=== PATIENT | male | born 1940 | race Caucasian/White ===

== ENCOUNTER 2018-02-20 10:23 | Observation (INO) | payer OTHER ==
[~2018-02-20] VITALS: Ht 182.9 cm; Wt 86.0 kg
[~2018-02-20 10:23] MED LIST: ASPIRIN EC325 M1 PO; ASPIRIN325 PO; CARDIZEM CD120 MG PO; CARDIZEM CD180 MG PO; COLACE100 MG PO; FISH OIL 1,2001 EAC3 PO; KEFLEX500 MG PO; MIRALAX17 GM PO; MULTAQ400 MG PO; NIACIN ER1000 MG PO; NIASPAN; OXYCODONE HCL 55 MG PO; PERCOCET 5-3251 EACH PO; PROPAFENONE 15150 MG PO; TYLENOL325 MG PO; VALIUM5 MG; VITAMIN D1000 UNI1 PO; VITAMIN SUPPLEMENTS; XARELTO10 MG PO; ZETIA10 MG PO
[2018-02-20 10:28] VITALS: BP 126/76
[2018-02-20] MEDS ORDERED: XARELTO20 MG PO (10:31)
[2018-02-20 10:47] LABS: ABSOLUTE BASOPHILS 0.1 thou/uL (0.0-0.2); ABSOLUTE EOSINOPHILS 0.1 thou/uL (0.0-0.7); ABSOLUTE LYMPHOCYTES 0.7 thou/uL (0.8-5.3); ABSOLUTE MONOCYTES 0.7 thou/uL (0.0-1.2); ABSOLUTE NEUTROPHILS 4.9 thou/uL (1.6-8.1); BASOPHILS 1.2 %; EOSINOPHILS 1.3 %; HEMATOCRIT 47.1 % (42.0-52.0); HEMOGLOBIN 15.6 gm/dL (14.0-18.0); LYMPHOCYTES 10.2 %; MCH 29.2 pg (26.0-34.0); MCHC 33.2 g/dL (28.0-37.0); MCV 88.1 fL (80.0-100.0); MONOCYTES 11.6 %; MPV 9.7 fl. (7.2-11.1); NUCLEATED RBCS 0 /100WBC; PLATELET COUNT* 165 thou/uL (150-400); POLYS 75.7 %; RBC 5.35 mil/uL (4.50-6.00); RDW-CV 13.7 % (10.5-14.5); WBC 6.4 thou/uL (4.0-11.0)
[2018-02-20 10:54] LABS: ANION GAP 7 mmol/L (7-16); BUN 11 mg/dL (7-18); CALCIUM 8.4 mg/dL (8.5-10.1); CHLORIDE 103 mmol/L (98-107); CO2 25 mmol/L (21-32); CREATININE 1.3 mg/dL (0.6-1.3); GLUCOSE 113 mg/dL (70-99); POTASSIUM 4.4 mmol/L (3.5-5.1); SODIUM 135 mmol/L (136-145)
[2018-02-20 11:00] LABS: INR 1.3; PROTIME 12.5 Seconds (9.20-11.50)
[2018-02-20 11:02] LABS: ALBUMIN 3.6 g/dL (3.4-5.0); ALKALINE PHOSPHATASE 94 U/L (46-116); SGOT 18 U/L (15-37); SGPT 19 U/L (30-65); TOTAL BILIRUBIN 0.6 mg/dL (<0.1-1.0); TOTAL PROTEIN 6.8 g/dL (6.4-8.2); TROPONIN-I LEVEL <0.06 ng/mL (<0.06)
[2018-02-20 12:09] VITALS: BP 134/77
[2018-02-20 12:14] VITALS: BP 124/78
--- NOTE | 2018-02-20 15:06 | EKG ---
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1940 Requested By: Keyshawn Reaves Order Number: [id number] MD: Morris Andres Measurements Intervals [place] Rate: 63 P: PA: QRS: 0 QRSD: 115 T: 116 QT: 451 QTc: 462 Interpretive Statements Atrial flutter with 3-1 conduction Nonspecific repol abnormality, lateral leads Compared to ECG 02/12/2016 08:27:12 Early repolarization now present Sinus rhythm no longer present Atrial premature complex(es) no longer present Electronically Signed On 02-20-2018 15:06:11 CDT by Morris Andres [email or web address] <ELECTRONICALLY SIGNED> By: Morris Andres MD, FAC 02/20/18 1506 [id number] [id number] Morris Andres MD, [facility] /EPI
[2018-02-20] MEDS ORDERED: VITAMIN D3400 UNIT PO (15:36)
[2018-02-20 16:00] VITALS: BP 140/77
[2018-02-20 17:14] VITALS: BP 153/88
[2018-02-21] VITALS: BP 109/69
[2018-02-21 04:00] VITALS: BP 106/67
[2018-02-21 05:11] LABS: GLYCOHEMOGLOBIN (HGB A1C) 5.3 % (4.8-5.6)
[2018-02-21 05:18] LABS: CHOLESTEROL 171 mg/dL (<200); HDL CHOLESTEROL 47 mg/dL (>40); LDL CHOLESTEROL 93 mg/dL (<100); TC:HDL 3.6 Ratio (Not establshd); TRIGLYCERIDE 157 mg/dL (<150); VLDL 31 mg/dL (<40)
[2018-02-21 05:30] LABS: SERUM ASSESSMENT CLEAR
[2018-02-21 08:15] VITALS: BP 126/91
[2018-02-21] MEDS ORDERED: LIPITOR10 MG PO (11:26)
[2018-02-21 11:31] VITALS: BP 109/58
[2018-02-21] MEDS ORDERED: LIPITOR40 MG PO (11:38)
[2018-02-21 11:50] VITALS: BP 128/87
[2018-02-21 13:33] VITALS: BP 109/58
== END 2018-02-21 13:51 | disposition home health service (06) ==
LOC: M.ERS 10:23 → M.2W 11:01 → M.TBA-ER 11:01 → M.2W 12:02
PROVIDERS: Family Medicine; ADMIT Internal Medicine
DX: I48.91 Unspecified atrial fibrillation (principal); I48.92 Unspecified atrial flutter; R07.9 Chest pain, unspecified; E78.5 Hyperlipidemia, unspecified; R00.0 Tachycardia, unspecified; I10 Essential (primary) hypertension; G45.9 Transient cerebral ischemic attack, unspecified; M19.90 Unspecified osteoarthritis, unspecified site; K59.09 Other constipation; E55.9 Vitamin D deficiency, unspecified; Z90.49 Acquired absence of other specified parts of digestive tract; Z87.891 Personal history of nicotine dependence; Z72.89 Other problems related to lifestyle; Z98.890 Other specified postprocedural states